=== PATIENT | female | born 1990 | race Caucasian/White ===

== ENCOUNTER → 2016-12-16 | Outpatient (CLI) | payer OTHER ==
[2016-12-16 17:18] LABS: BASOPHILS # (AUTO) 0.05 10*3/UL; BASOPHILS % (AUTO) 0.5 % (0-1); EOSINOPHILS # (AUTO) 0.37 10*3/UL; EOSINOPHILS % (AUTO) 3.8 % (0-8); HEMOGLOBIN 15.2 g/dL (12.0-16.0); LYMPHOCYTES # (AUTO) 2.95 10*3/uL; MEAN CORPUSCULAR HEMOGLOBIN 31.8 PG (27-31); MEAN CORPUSCULAR HGB CONC 35.3 g/dL (33-37); MEAN PLATELET VOLUME 11.2 FL (7.4-12.2); MONOCYTES # (AUTO) 0.47 10*3/UL (0.3-0.8); MONOCYTES % (AUTO) 4.8 % (5-15); NEUTROPHILS # (AUTO) 5.88 10*3/UL; NEUTROPHILS % (AUTO) 60.4 % (50-80); RED BLOOD COUNT 4.78 10^6/uL (4.20-5.40)
[2016-12-16 17:22] LABS: PLATELET MORPHOLOGY COMMENT NORMAL MORPHOLOGY (NORM); RBC MORPHOLOGY COMMENT NORMAL MORPHOLOGY (NORM); WBC MORPHOLOGY COMMENT NORMAL MORPHOLOGY (NORM)
[2016-12-16 18:00] LABS: HIV ANTIBODY NEGATIVE (N); HIV-1 P24 ANTIGEN NEGATIVE (N)
[2016-12-18 13:02] LABS: HEP B SURFACE AG Negative (Negative)
== END ==
LOC: MOB LAB 16:28
PROVIDERS: ATTEND Student in an Organized Health Care Education/Training Program
DX: Z34.01 Encounter for supervision of normal first pregnancy, first trimester (principal)
CPT/HCPCS: 36415; 80081; 86900; 86901; 87088

== ENCOUNTER → 2017-01-13 | Outpatient (CLI) | payer OTHER | LOC: MOB LAB 13:50 | PROVIDERS: ATTEND Student in an Organized Health Care Education/Training Program | DX: Z36 Encounter for antenatal screening of mother (principal); Z3A.12 12 weeks gestation of pregnancy | CPT/HCPCS: 87088 ==

== ENCOUNTER → 2017-03-16 | Outpatient (CLI) | payer OTHER ==
--- NOTE | 2017-03-17 08:50 | DI ---
US OB GTE 14 WEEKS,03/16/2017 1:10 PM: Clinical History: Encounter for anatomic survey. Previous Exam: None at this facility. Findings: Multiple grayscale and color Doppler sonographic images are obtained through the pelvis, and demonstr ate a single live intrauterine gestation in vertex presentation. Amniotic fluid level is normal. There is normal motion of the limbs and normal motion of the diaphragms. The placenta is anterior and grade 0 without defects. The cervix is long and closed measuring 4 cm in length. Detected Doppler heart tones measure 153 beats per minute. Estimated gestational age was determined by a composite of biparietal diameter, head circumference, a bdominal circumference and femur length yielding an estimated gestational age by ultrasound of 21 wee ks 4 days. Estimated weight is 424 g (76th percentile). anatomy was within normal limits. Impression: Single live intrauterine gestation with size equal to dates. Normal anatomic survey.
== END ==
LOC: US 13:05
PROVIDERS: ATTEND Student in an Organized Health Care Education/Training Program
DX: Z36 Encounter for antenatal screening of mother (principal); Z3A.16 16 weeks gestation of pregnancy
CPT/HCPCS: 76805

== ENCOUNTER → 2017-05-01 | Outpatient (CLI) | payer OTHER ==
[2017-05-01 09:03] LABS: HEMATOCRIT 37.1 % (37.0-47.0); HEMOGLOBIN 12.7 g/dL (12.0-16.0); MEAN CORPUSCULAR HEMOGLOBIN 31.9 PG (27-31); MEAN CORPUSCULAR HGB CONC 34.2 g/dL (33-37); MEAN CORPUSCULAR VOLUME 93.2 FL (81-99); MEAN PLATELET VOLUME 11.2 FL (7.4-12.2); RED BLOOD COUNT 3.98 10^6/uL (4.20-5.40)
== END ==
LOC: LAB 07:42
PROVIDERS: ATTEND Student in an Organized Health Care Education/Training Program
DX: Z36 Encounter for antenatal screening of mother (principal); Z3A.27 27 weeks gestation of pregnancy
CPT/HCPCS: 36415; 82950; 85027